=== PATIENT | female | born 1985 | race Caucasian/White ===

== ENCOUNTER 2018-08-10 10:40 | Emergency (ER) | payer OTHER ==
[2018-08-10] MEDS ORDERED: IBUPROFEN PO ONE (11:30)
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
[2018-08-10 11:40] VITALS: BP 124/71
== END 2018-08-10 11:38 | disposition home or self-care (01) ==
LOC: ED 10:40
DX: M79.641 Pain in right hand (principal); M79.642 Pain in left hand; M79.10 Myalgia, unspecified site; V89.2XXA Person injured in unspecified motor-vehicle accident, traffic, initial encounter; Y93.89 Activity, other specified; Y92.488 Other paved roadways as the place of occurrence of the external cause; Y99.8 Other external cause status
CPT/HCPCS: 99282